=== PATIENT | male | born 1985 | race Caucasian/White ===

== ENCOUNTER 2024-01-05 11:36 | Day surgery (SDC) | payer OTHER ==
[2023-12-30 08:12] VITALS: BP 127/75
[~2024-01-05] VITALS: Ht 188 cm; Wt 88.6 kg
[~2024-01-05 11:36] MED LIST: CEFAZOLIN SODIUM 2 GM/20 ML SYR IV SCH; HEParin SOD (PORCINE) 5,000 UNIT/0.5 ML SYR SUB-Q SCH; IBLOOD GLUCOSE TEST STRIP 1 EA TEST VI PRN; LACTATED RINGER'S 1,000 ML IV SCH; LIDOCAINE HCL 1% 5 ML SDV INJ ONE
[2024-01-05 11:51] VITALS: BP 133/81
[2024-01-05] MEDS ORDERED: propofoL 200 MG/20 ML VIAL ONE (12:51)
[2024-01-05] MEDS ORDERED: KETAMINE in NS 50 MG/5 ML SYR ONE (12:51)
[2024-01-05] MEDS ORDERED: LIDOCAINE HCL 2% 5 ML SDV ONE ×2 (12:51→13:48)
[2024-01-05] MEDS ORDERED: MIDAZOLAM HCL 2 MG/2 ML VIAL ONE (12:51)
[2024-01-05] MEDS ORDERED: BUPIVACAINE HCL 0.25% 30 ML SDV ONE (13:45)
[2024-01-05] MEDS ORDERED: dexmedeTOMIDine HCl 200 MCG/2 ML VIAL ONE (13:49)
[2024-01-05] MEDS ORDERED: ACETAMINOPHEN 1,000 MG/100 ML VIAL ONE (13:51)
[2024-01-05] MEDS ORDERED: fentaNYL citrate 100 MCG/2 ML VIAL ONE (14:17)
[2024-01-05] MEDS ORDERED: ondansetron HCL 4 MG/2 ML VIAL ONE (14:25)
[2024-01-05] MEDS ORDERED: DEXAMETHASONE SOD PHOS 4 MG/ML VIAL ONE (14:25)
[2024-01-05] MEDS ORDERED: KETOROLAC TROMETHAMINE 30 MG/ML VIAL ONE (14:25)
[2024-01-05] MEDS ORDERED: ePHEDrine sulfate 50 MG/ML AMP ONE (14:34)
[2024-01-05] MEDS ORDERED: LACTATED RINGER'S 1,000 ML IV ONE (14:39)
[2024-01-05] MEDS ORDERED: IBUPROFEN600 MG PO (15:23)
[2024-01-05] MEDS ORDERED: OXYCODON-ACETA1 EAC2 PO (15:23)
[2024-01-05] MEDS ORDERED: ACETAMINOPHEN500 MG PO (15:24)
--- NOTE | 2024-01-05 15:27 | NUR ---
01/05/24 1527 Sissy Sánchez 1504 PT ARRIVED TO PACU ON 6L VIA MASK, RESP EVEN AND UNLABORED. PT SHIVERING AND WARM BLACKETS GIVEN. PT ASLEEP. 1510 O2 REMOVED. PT WAKES TO VERBAL STIMULI AND DENIES CONCERNS. HOB INCREASED SLIGHTLY. PT DENIES NAUSEA. 1526 MD AT BEDSIDE TALKING TO PT. PLAN OF CARE DISCUSSED.
[2024-01-05] MEDS ORDERED: NALOXONE HCL 0.4 MG SYR IV PRN (15:30)
[2024-01-05] MEDS ORDERED: LACTATED RINGER'S 1,000 ML IV SCH (15:30)
[2024-01-05] MEDS ORDERED: OXYCODONE/APAP 7.5/325 TAB PO PRN (15:30)
[2024-01-05] MEDS ORDERED: ACETAMINOPHEN 500 MG TAB PO PRN (15:30)
[2024-01-05] MEDS ORDERED: IBUPROFEN 600 MG TAB PO PRN (15:30)
[2024-01-05 15:37] VITALS: BP 139/81
--- NOTE | 2024-01-05 15:52 | NUR ---
1540: PATIENT BACK IN DAY SURGERY ROOM FROM PACU. DENIES PAIN. LEFT POSTERIOR NECK DRESSING CLEAN, DRY AND INTACT. KAYA DRAIN PATENT WITH SMALL AMOUNT OF SEROSANGUINOUS DRAINAGE. VS CHECKED. IV SITE WNL. GIVEN ICE WATER AND APPLESAUCE. CALL LIGHT WITHIN REACH.
[2024-01-05 16:25] VITALS: BP 145/85
--- NOTE | 2024-01-05 17:17 | NUR ---
1620: PATIENT TOLERATED APPLESAUCE AND WATER. VS CHECKED. LEFT POSTERIOR NECK DRESSING CDI. KAYA DRAIN PATENT. DISCHARGE INSTRUCTIONS GIVEN TO PATIENT INCLUDING KEEPING TRACK OF KAYA DRAINAGE AND STRIPPING OF KAYA DRAIN. STAND BY ASSIST WHILE PATIENT GOT OOB AND GOT DRESSED. STAND BY ASSIST WHILE PATIENT WALKED TO BATHROOM. GAIT STEADY. VOID WITHOUT DIFFICULTY APPROXIMATELY 900 ML. GAIT STEADY BACK TO ROOM. HERE. PATIENT AND EDUCATED ON HOW TO EMPTY KAYA DRAIN. ALL QUESTIONS REGARDING KAYA DRAIN CARE ANSWERED. 1645: IV DC'D WNL. TIP INTACT. DRESSING APPLIED. 1652: PATIENT DISCHARGED TO HOME VIA WHEELCHAIR WITH .
--- NOTE | 2024-01-08 15:57 | PATH ---
[facility] [address] [place] [address] [place] [place] [address] Signed SPECIMEN(S): A LEFT POSTERIOR NECK SPECIMEN SOURCE: A. LEFT POSTERIOR NECK CLINICAL HISTORY: Soft tissue mass left superior lateral trapezius. FINAL PATHOLOGIC DIAGNOSIS: Soft tissue mass, left posterior neck, excision: - Benign adipose tissue consistent with lipoma. SDL MICROSCOPIC EXAMINATION: Histologic sections of all submitted blocks are examined by light microscopy. These findings, together with the gross examination, support the pathologic diagnosis. GROSS DESCRIPTION: The specimen, labeled and designated "Jim, M, " and designated on the requisition "soft tissue mass left posterior trapezius is 7 cm," is received in formalin and consists of a 26 gram portion of yellow-cook adipose tissue that is 6.6 x 5.2 x 2.3 cm. The specimen is partially surfaced by a pink-red shaggy membranous tissue. The tissue is inked and serially sectioned to reveal a yellow homogeneous cut surface. Radio Division Captain sections are submitted in (A1-A3). FB (under the direct supervision of a pathologist) The Gross Description was prepared using a voice recognition system. The report was reviewed for accuracy; however, sound-alike word errors, addition and/or deletions may occur. If there are any questions about this report, please contact Client Services. ADDITIONAL NOTES: Immunohistochemical and/or in situ hybridization studies if performed in this case included appropriate positive controls that reacted as expected. This test was developed and its performance characteristics determined by [facility]. It has not been cleared or approved by the U.S. Food and Drug Administration. The FDA has determined that such clearance or approval is not necessary. This test is used for clinical purposes. It should not be regarded as investigational or for research. [facility] is certified under the PATIENT NAME: JUAN BONILLA PATHOLOGY DATE OF : 83 REPORT #: [id number] PHYSICIAN: [facility] PCP: JAYCEE STEPHENSON NP REPORT IS CONFIDENTIAL AND NOT TO BE RELEASED WITHOUT AUTHORIZATION [address] [address] Signed Clinical Laboratory Improvement Amendments of 1988 (CLIA) as qualified to perform high complexity clinical laboratory testing. PERFORMING LABORATORY: Technical component was performed by [facility], [address] [place] [id number] (CLIA# [id number]). [facility], [address] [place] [id number] (CLIA#: [id number]). Diagnostician: Margo Hobbs MD Pathologist Electronically Signed 01/08/2024 Copies: ~ PATIENT NAME: JUAN BONILLA PATHOLOGY DATE OF : 83 REPORT #: [id number] PHYSICIAN: [facility] PCP: JAYCEE STEPHENSON NP REPORT IS CONFIDENTIAL AND NOT TO BE RELEASED WITHOUT AUTHORIZATION
--- NOTE | 2024-01-09 09:58 | OR ---
[facility] [address] [place], [place] [address] Signed DATE OF OPERATION: 01/05/2024 SURGEON: Jm Suggs MD PREOPERATIVE DIAGNOSIS: Left posterior superior shoulder/neck soft tissue mass, 7.0 cm. POSTOPERATIVE DIAGNOSIS: Left posterior superior shoulder/neck soft tissue mass, 7.0 cm consistent with subfascial intra-trapezial lipomatosis mass. PROCEDURE: Excision of left superior trapezius subfascial/intramuscular soft tissue mass 7 cm. ANESTHESIA: General LMA, Shelbi Liu CRNA and Trever Martino CRNA and local 10 mL of 0.25% Marcaine with epinephrine. INDICATIONS: This 38-year-old white man is a patient of BAKARI Schneider. He is noted to have a left posterior neck/shoulder soft tissue mass, which is rather prominent, measuring about 6-7 cm. It occasionally gives him painful "twinges." He has been present since 2019. He has had no evidence of drainage from the area or swelling, but it is unchanged and is clinically consistent with a lipomatous mass. He is admitted at this time to undergo excision of the mass. He understands the risk of bleeding, infection, cosmetic deformity, recurrence, and other unforeseen complications. Understanding this, he wished to proceed. FINDINGS: The soft tissue mass was considered a benign lipoma. There was definitely a subfascial and partly intercalated into the superior trapezius muscle. Complete excision was undertaken. Given the relatively large empty space that remained a 10-Georgian Kayode drain was placed in the soft tissue defect attached to bulb suction. DESCRIPTION OF PROCEDURE: The patient was brought to the operating room, given a general LMA type anesthetic. Preoperative antibiotic Ancef was given. He is placed in lateral decubitus position right side down. Careful padding of the axilla, knees, and so forth was undertaken allowing for optimal exposure of the area at the junction between the neck and the thorax itself. The area was prepared with a chlorhexidine solution and draped Electronically Signed By: JM SUGGS MD 01/09/24 0958 PATIENT NAME: JUAN BONILLA OPERATIVE REPORT DATE OF : 83 REPORT #: [id number] PHYSICIAN: JM SUGGS MD PCP: JAYCEE STEPHENSON NP REPORT IS CONFIDENTIAL AND NOT TO BE RELEASED WITHOUT AUTHORIZATION [facility] [address] [place] [id number] Signed sterilely. A transverse incision was made along the line of skin tension. Dissection carried through the dermis sharply and hemostasis assured with electrocautery. Although, anticipating a smooth capsular covering, it was not particularly that, that it was benign in appearance. This was dissected free with blunt electrocautery dissection throughout down to and including the posterior muscular fascia and more laterally to the trapezius. It appeared to emanate beneath the fascia and was partly intramuscular in the trapezius. This was excised completely. It was measured at 7.0 cm. Electrocautery was used for hemostasis. Through a separate stab incision anteriorly, a 10-Georgian round Kayode drain was placed, secured to the skin and the wound was then closed with interrupted 2-0 Vicryl in deep dermal layer and a running subcuticular and 3-0 Vicryl for the skin proper. Steri-Strips were applied as were Acticoat dressings after injecting 10 mL of 0.25% Marcaine with epinephrine locally for postoperative analgesic benefit. The drain was left relatively long and attached to bulb suction after assuring that it was functional. He was returned to the supine position, subsequently extubated and transferred to the recovery room in good condition having suffered no complications. Sponge, needle, and instrument counts were reported as correct x3. MD TR Wilcox/GILLL /[id number] cc: BAKARI Schneider Copies: ~ Electronically Signed By: JM SUGGS MD 01/09/24 0958 PATIENT NAME: JUAN BONILLA OPERATIVE REPORT DATE OF : 83 REPORT #: [id number] PHYSICIAN: JM SUGGS MD PCP: JAYCEE STEPHENSON NP REPORT IS CONFIDENTIAL AND NOT TO BE RELEASED WITHOUT AUTHORIZATION
== END 2024-01-05 16:52 | disposition home or self-care (01) ==
LOC: DS 11:36
PROVIDERS: ATTEND Surgery
PROC: 0JB50ZZ Excision of Left Neck Subcutaneous Tissue and Fascia, Open Approach (ICD-10-PCS; principal; 2024-01-05 09:45)
DX: R22.1 Localized swelling, mass and lump, neck (principal); D12.3 Benign neoplasm of transverse colon; Z98.890 Other specified postprocedural states
CPT/HCPCS: 00300; J0131; J0690; J1100; J1644; J1885; J2001; J2250; J2405; J2704; J3010; J3490; J7121